=== PATIENT | female | born 1970 | race Caucasian/White ===

== ENCOUNTER 2017-07-08 12:15 | Emergency (ER) | payer OTHER ==
[2017-07-08] MEDS ORDERED: Meclizine 12.5 MG Tab PO ONE (12:16)
[2017-07-08 12:46] LABS: CHLORIDE,CL 102 mEq/L (98-106); SODIUM,NA 138 mEq/L (136-145)
--- NOTE | 2017-07-08 12:51 | EDM.PDOC ---
ED HPI GENERAL MEDICAL PROBLEM - General Chief Complaint: Chest Pain Stated Complaint: chest pain, dyspnea Time Seen by Provider: 07/08/17 12:25 Source of Information: Reports: Patient History Limitations: Reports: No Limitations - History of Present Illness INITIAL COMMENTS - FREE TEXT/NARRATIVE: Sumi is a pleasant 46 year old female who presents to the ED with her daughter with c/o intermittent chest pain, shortness of breath, and dizziness. She reports that this all started on , 4 days prior to Ed presentation. She reports the pain and symptoms have been occurring intermittently since then. She thought they were getting better yesterday, but reports it is worse again today. She describes the pain as pressure, across the upper portion of her anterior chest. Denies radiation of the pain. She reports the pain worsens with activity and improves with rest. She has not taken anything for the pain at home. She also reports she has had a headache intermittently, but not worse enough to the point where she has taken anything for it. She has also been diaphoretic at times. She also reports she has been slightly nauseated. Has been eating and drinking ok. She denies any vomiting, fever, chills, abdominal pain, diarrhea, constipation, cough, cold symptoms, or recent illness. She does reports that she had a left TKA on 04/19/2017. She has been doing more exercising since then. She reports she has been exercising daily and has been using her upper extremities more than usual. Denies any calf swelling, pain or redness recently. She also reports a history of GERD. She does take Prevacid daily. She also reports a lot of increased stress in her life recently. She reports they recently relocated here from [place] for her 's job and now he has gotten relocated to [place]. They are unsure of what is going to happen, so she reports it has been very stressful. Onset Date: 07/05/17 Duration: Intermittent Location: Reports: Chest Quality: Reports: Pressure Associated Symptoms: Reports: Chest Pain, Diaphoresis, Nausea/Vomiting, Shortness of Breath. Denies: Confusion, Cough, cough w sputum, Fever/Chills, Headaches, Loss of Appetite, Malaise, Rash, Seizure, Syncope, Weakness Chest Pain Score (Numeric/FACES): 0 - Related Data Allergies Allergy/AdvReac Type Severity Reaction Status Date / Time No Known Allergies Allergy Verified 07/08/17 12:25 Home Meds: Home Meds Aspirin 325 mg PO DAILY 07/08/17 [History] Lansoprazole [Prevacid] 30 mg PO DAILY 07/08/17 [History] Methylphenidate [Ritalin LA] 30 mg PO BID 07/08/17 [History] ED ROS GENERAL - Review of Systems Review Of Systems: See Below Constitutional: Reports: Fatigue, Diaphoresis. Denies: Fever, Chills, Weakness , Decreased Appetite HEENT: Reports: No Symptoms Respiratory: Reports: Shortness of Breath. Denies: Wheezing, Pleuritic Chest Pain, Cough, Sputum, Hemoptysis Cardiovascular: Reports: Chest Pain, Dyspnea on Exertion, Lightheadedness. Denies: Blood Pressure Problem, Edema, Palpitations, Syncope Endocrine: Reports: Fatigue GI/Abdominal: Reports: Nausea. Denies: Abdominal Pain, Anorexia, Black Stool, Bloody Stool, Constipation, Diarrhea, Decreased Appetite, Vomiting : Reports: No Symptoms Musculoskeletal: Reports: No Symptoms Skin: Reports: Diaphoresis Neurological: Reports: Dizziness, Headache. Denies: Confusion, Numbness, Pre- Existing Deficit, Syncope, Tingling, Weakness Psychiatric: Reports: Other (increased stress) Hematologic/Lymphatic: Reports: No Symptoms Immunologic: Reports: No Symptoms ED EXAM, GENERAL - Physical Exam Exam: See Below Exam Limited By: No Limitations General Appearance: Alert, WD/WN, No Apparent Distress Eye Exam: Bilateral Eye: EOMI, PERRL Head: Atraumatic, Normocephalic Neck: Normal Inspection, Supple, Non-Tender, Full Range of Motion Respiratory/Chest: No Respiratory Distress, Lungs Clear, Normal Breath Sounds, No Accessory Muscle Use, Chest Non-Tender Cardiovascular: Normal Peripheral Pulses, Regular Rate, Rhythm, No Edema, No Gallop, No JVD, No Murmur, No Rub GI/Abdominal: Normal Bowel Sounds, Soft, Non-Tender, No Organomegaly, No Distention, No Abnormal Bruit, No Mass Back Exam: Normal Inspection, Full Range of Motion, NT Extremities: Normal Inspection, Normal Range of Motion, Non-Tender, Normal Capillary Refill, No Pedal Edema Neurological: Alert, Oriented, CN II-XII Intact, Normal Cognition, Normal Gait, Normal Reflexes, No Motor/Sensory Deficits Psychiatric: Normal Affect, Normal Mood Skin Exam: Warm, Dry, Intact, Normal Color, No Rash Lymphatic: No Adenopathy Course - Vital Signs Last Recorded V/S: Last Vital Signs Temp 96.9 F 07/08/17 12:23 Pulse 96 07/08/17 12:23 Resp 16 07/08/17 12:23 BP 119/81 07/08/17 12:44 Pulse Ox 99 07/08/17 12:23 - Orders/Labs/Meds Orders: Active Orders 24 hr Category Date Time Status EKG Documentation Completion [RC] STAT Care 07/08/17 12:21 Active CTA Chest W WO Contrast [Ang Chest] [CT] Stat Exams 07/08/17 13:39 Taken Chest 2V [CR] Stat Exams 07/08/17 12:26 Taken Labs: Laboratory Tests 07/08/17 07/08/17 07/08/17 Range/Units 12:25 12:25 12:25 WBC 5.2 (5.0-10.0) 10^3/uL RBC 4.78 (4.00-5.50) 10^6/uL Hgb 12.4 (12.0-16.0) g/dL Hct 37.9 (37.0-47.0) % MCV 79.3 L (82.0-94.0) fL MCH 25.9 L (27.0-32.0) pg MCHC 32.7 L (33.0-38.0) g/dL RDW Coeff of Jarvis 14.1 (11.0-15.0) % Plt Count 245 (150-400) 10^3/uL Neut % (Auto) 63.9 (35-85) % Lymph % (Auto) 24.4 (10-55) % [place] % (Auto) 10.1 (0-16) % Eos % (Auto) 1.4 (0-5) % Baso % (Auto) 0.2 (0-3) % Neut # (Auto) 3.31 (1.80-7.00) 10^3/uL Lymph # (Auto) 1.26 (1.00-4.80) 10^3/uL [place] # (Auto) 0.52 (0.00-0.80) 10^3/uL Eos # (Auto) 0.07 (0.00-0.45) 10^3/uL Baso # (Auto) 0.01 10^3/uL PT 10.7 (9.7-12.3) SEC INR 0.99 (0.92-1.18) APTT 26.7 (20.0-45.0) SEC D-Dimer, Quantitative 0.91 H (0.00-0.50) Sodium 138 (136-145) mEq/L Potassium 3.7 (3.5-5.0) mEq/L Chloride 102 (98-106) mEq/L Carbon Dioxide 26 (21-32) mmol/L BUN 16 (7-18) mg/dL Creatinine 1.0 (0.6-1.0) mg/dL Est Cr Clr Drug Dosing 68.36 mL/min Estimated GFR (MDRD) 60 (>=60) mL/min Glucose 115 H (75-99) mg/dL Calcium 9.1 (8.4-10.1) mg/dL Lactate Dehydrogenase 172 (100-190) U/L Creatine Kinase 150 (21-215) U/L Troponin I < 0.017 (0.00-0.06) ng/mL Meds: Medications Discontinued Medications Generic Name Dose Route Start Last Admin Trade Name Freq PRN Reason Stop Dose Admin Meclizine HCl 2 packet 07/08/17 15:16 07/08/17 15:21 Take Home: Meclizine 12.5 Mg, 4 Tab Pack PO 07/08/17 15:17 2 packet ONETIME ONE Administration - Re-Assessments/Exams Free Text/Narrative Re-Assessment/Exam: Discussed labs, EKG, and Xray images with patient and daughter. D-dimer slightly elevated. Given recent surgery, will proceed with chest CTA. Chest CTA negative for any acute findings. Will discharge home. Please see nurses note for PMH, PSH, SH, and FH. Departure - Departure Time of Disposition: 15:14 Disposition: Home, Self-Care 01 Condition: Good Clinical Impression: Atypical chest pain, Dizziness Instructions: Nonspecific Chest Pain, [id number], Dizziness, [id number] Referrals: PCP,None [Primary Care Provider] - Forms: ED Department Discharge Additional Instructions: ALL LABS STABLE CXR AND CHEST CTA NEGATIVE FOR ANY ACUTE FINDINGS PUSH FLUIDS MECLIZINE NEEDED FOR DIZZINESS ACTIVITY TOLERATED TYLENOL OR IBUPROFEN NEEDED FOR CHEST PAIN OR HEADACHE FOLLOW UP NEXT WEEK FOR ER RECHECK WITH DARYN VILLALOBOS. CALL [phone] TO SCHEDULED APPOINTMENT. - My Orders Last 24 Hours: My Active Orders 07/08/17 12:21 EKG Documentation Completion [RC] STAT 07/08/17 12:26 Chest 2V [CR] Stat 07/08/17 13:39 CTA Chest W WO Contrast [Ang Chest] [CT] Stat - Assessment/Plan Last 24 Hours: My Active Orders 07/08/17 12:21 EKG Documentation Completion [RC] STAT 07/08/17 12:26 Chest 2V [CR] Stat 07/08/17 13:39 CTA Chest W WO Contrast [Ang Chest] [CT] Stat
[2017-07-08] MEDS: Take Home: Meclizine 12.5 MG Tab, 4 Tab Pack PO ONE (15:21)
== END 2017-07-08 15:26 | disposition home or self-care (01) ==
LOC: CC.ED 12:15
DX: R07.89 Other chest pain (principal); R42 Dizziness and giddiness; R06.02 Shortness of breath; K21.9 Gastro-esophageal reflux disease without esophagitis; Z79.82 Long term (current) use of aspirin; Z79.899 Other long term (current) drug therapy; Z96.652 Presence of left artificial knee joint
CPT/HCPCS: 36415; 71046; 71275; 80048; 82550; 83615; 84484; 85025; 85379; 85610; 85730; 87804; 93005; 99285; A9270; Q9967